=== PATIENT | female | born 1995 | race Caucasian/White ===

== ENCOUNTER → 2021-04-26 13:39 | Outpatient (BNVA) | payer OTHER, SELFPAY | PROVIDERS: Visit Provider Nurse Practitioner Women's Health | DX: Z01.419 Encounter for gynecological examination (general) (routine) without abnormal findings (principal) | CPT/HCPCS: 88175 ==

== ENCOUNTER → 2022-12-10 14:23 | Outpatient (BNVA) | payer OTHER, SELFPAY | PROVIDERS: Visit Provider Nurse Practitioner Women's Health | DX: Z32.00 Encounter for pregnancy test, result unknown (principal) | CPT/HCPCS: 81025 ==

== ENCOUNTER → 2023-01-06 15:45 | Outpatient (BNVA) | payer OTHER, SELFPAY | PROVIDERS: Visit Provider Nurse Practitioner Women's Health | DX: Z36.87 Encounter for antenatal screening for uncertain dates (principal) | CPT/HCPCS: 76801 ==

== ENCOUNTER → 2023-01-16 14:36 | Outpatient (BNVA) | payer OTHER, SELFPAY | PROVIDERS: Visit Provider Obstetrics & Gynecology | DX: Z34.00 Encounter for supervision of normal first pregnancy, unspecified trimester (principal) | CPT/HCPCS: 80307; 84315; 87086 ==

== ENCOUNTER → 2023-01-30 08:46 | Outpatient (BNVA) | payer OTHER, SELFPAY | PROVIDERS: Visit Provider Obstetrics & Gynecology | DX: Z34.00 Encounter for supervision of normal first pregnancy, unspecified trimester (principal) | CPT/HCPCS: 84315; 84443; 85027; 86592; 86762; 86787; 86803; 86850; 86900; 87340; 87491; 87591; 87806 ==

== ENCOUNTER → 2023-04-04 14:23 | Outpatient (BNVA) | payer OTHER, SELFPAY | PROVIDERS: Visit Provider Nurse Practitioner Women's Health | DX: Z34.02 Encounter for supervision of normal first pregnancy, second trimester (principal); Z36.2 Encounter for other antenatal screening follow-up; Z3A.21 21 weeks gestation of pregnancy | CPT/HCPCS: 76805; 84315 ==

== ENCOUNTER → 2023-04-25 14:35 | Outpatient (BNVA) | payer OTHER, SELFPAY | PROVIDERS: Visit Provider Nurse Practitioner Women's Health | DX: Z34.02 Encounter for supervision of normal first pregnancy, second trimester; Z83.2 Family history of diseases of the blood and blood-forming organs and certain disorders involving the immune mechanism; Z36.2 Encounter for other antenatal screening follow-up | CPT/HCPCS: 82950; 84315 ==

== ENCOUNTER → 2023-05-01 15:26 | Outpatient (BNVA) | payer OTHER, SELFPAY | PROVIDERS: Visit Provider Obstetrics & Gynecology | DX: Z34.80 Encounter for supervision of other normal pregnancy, unspecified trimester (principal) | CPT/HCPCS: 76816 ==

== ENCOUNTER → 2023-05-05 08:20 | Outpatient (BNVA) | payer OTHER, SELFPAY | PROVIDERS: Visit Provider Obstetrics & Gynecology | DX: Z34.02 Encounter for supervision of normal first pregnancy, second trimester (principal) | CPT/HCPCS: 82951; 82952 ==

== ENCOUNTER 2023-05-14 14:23 | Outpatient (CLI) | payer OTHER, SELFPAY ==
[2023-05-18 19:18] LABS: Factor 5 Leiden Mutation NEGATIVE
== END 2023-05-14 14:24 | disposition home or self-care (01) ==
LOC: LAB 14:25
PROVIDERS: PCP Obstetrics & Gynecology; Visit Provider Nurse Practitioner Women's Health
DX: Z01.89 Encounter for other specified special examinations (principal); Z83.2 Family history of diseases of the blood and blood-forming organs and certain disorders involving the immune mechanism
CPT/HCPCS: 36415; 81241

== ENCOUNTER → 2023-05-30 08:30 | Outpatient (BNVA) | payer OTHER, SELFPAY | PROVIDERS: PCP Obstetrics & Gynecology; Visit Provider Obstetrics & Gynecology | DX: Z34.02 Encounter for supervision of normal first pregnancy, second trimester (principal) | CPT/HCPCS: 84315; 85025 ==

== ENCOUNTER → 2023-07-08 08:33 | Outpatient (BNVA) | payer OTHER, SELFPAY | PROVIDERS: Visit Provider Nurse Practitioner Women's Health | DX: Z34.02 Encounter for supervision of normal first pregnancy, second trimester (principal) | CPT/HCPCS: 82607; 82728; 82746; 83550; 84315; 85025; 87081 ==

== ENCOUNTER → 2023-07-30 16:02 | Outpatient (BNVA) | payer OTHER, SELFPAY | PROVIDERS: Visit Provider Nurse Practitioner Women's Health | DX: Z34.03 Encounter for supervision of normal first pregnancy, third trimester | CPT/HCPCS: 85025 ==

== ENCOUNTER 2023-08-06 11:45 | Oncology outpatient (recurring) (ONCR) | payer OTHER, SELFPAY ==
[2023-07-18 07:58] VITALS: BP 112/73; PULSE 107; RESP 18; TEMP 36.8; O2SAT 96
[2023-07-18] MEDS: iron sucrose 500 MG in sodium chloride 0.9% 250 ML 68.75 MG IV (08:40)
[2023-07-18 11:48] VITALS: BP 110/72; PULSE 90; RESP 16; TEMP 36.8; O2SAT 99
[2023-07-21 12:15] VITALS: BP 117/75; PULSE 107; RESP 16; TEMP 36.8; O2SAT 97
[2023-07-21] MEDS: iron sucrose 500 MG in sodium chloride 0.9% 250 ML 78 MG IV (12:32)
[2023-07-21 15:12] VITALS: BP 112/73; PULSE 72; RESP 16; O2SAT 95
[2023-08-06 11:43] LABS: Reticulocyte % 3.2 % (0.5-2.0)
[2023-08-06 11:45] LABS: Basophils % 0.4 %; Eosinophils # 0.1 10^3/uL (0.0-0.8); Eosinophils % 1.7 %; Hematocrit 31.9 % (36-47); Lymphocytes # 1.1 10^3/uL (0.8-4.8); Lymphocytes % 20.4 %; Mean Corpuscular Hemoglobin 26.7 pg (27-33); Mean Platelet Volume 10.6 fL (7.4-10.4); Monocytes # 0.4 10^3/uL (0.2-0.9); Monocytes % 7.7 %; Neutrophils # 3.75 10^3/uL (1.8-7.7); Neutrophils % 68.9 %; Nucleated Red Blood Cells % 0 %; Platelet Count 152 10^3/cmm (157-399); Red Blood Count 3.71 10^6/uL (3.85-5.65); Red Cell Distribution Width 21.9 % (12.1-15.1); White Blood Count 5.44 10^3/uL (3.29-11.43)
[2023-08-06 12:03] LABS: Alanine Aminotransferase 10 U/L (0-33); Albumin Level 3.3 g/dL (3.5-5.2); Alkaline Phosphatase 126 U/L (35-105); Anion Gap 14.8 (5-19); Aspartate Amino Transferase 11 U/L (0-32); Blood Urea Nitrogen 6 mg/dL (6-20); Calcium 8.4 mg/dL (8.5-10.5); Carbon Dioxide 21 mmol/L (22-29); Chloride 105 mmol/L (98-107); Creatinine Clr Calc Pharmacy 363.1884; Ferritin 176 ng/mL (15-150); Globulin 2.7 g/dL (1.3-4.6); Glomerular Filtration Rate 268.9 mL/min (90-130); Glucose 104 mg/dL (65-115); Iron 79 ug/dL (37-145); Osmolality Calculated 282 mOsm/kg (285-295); Percent Saturation 18.1 % (20-50); Potassium 3.8 mmol/L (3.5-5.1); Sodium 137 mmol/L (136-145); Total Bilirubin 0.2 mg/dL (0.15-1.2); Total Iron Binding Capacity 436 mcg/dl; Unsaturated Iron Binding 357 ug/dL (112-347)
[2023-08-06 12:19] LABS: Vitamin B12 279 pg/mL (232-1245)
[2023-08-06 12:38] LABS: Folate Level > 20.0 ng/mL (4.8-37.3)
== END 2023-08-15 23:59 | disposition home or self-care (01) ==
PROVIDERS: Internal Medicine Hematology & Oncology; Visit Provider Obstetrics & Gynecology
DX: Z53.9 Procedure and treatment not carried out, unspecified reason (principal); O99.013 Anemia complicating pregnancy, third trimester; D64.9 Anemia, unspecified; Z3A.00 Weeks of gestation of pregnancy not specified
CPT/HCPCS: 36415; 80053; 82607; 82728; 82746; 83540; 83550; 84315; 85025; 85045; 96365; 96366; J1756; J7050

== ENCOUNTER 2023-08-15 08:39 | Outpatient (CLI) | payer OTHER, SELFPAY ==
[2023-08-15 08:39] VITALS: RESP 17; BMI 38.2
[2023-08-15 08:54] VITALS: BP 110/66; PULSE 99
[2023-08-15 09:09] VITALS: BP 114/58
[2023-08-15 09:24] VITALS: BP 110/75; PULSE 105
== END 2023-08-15 09:33 | disposition home or self-care (01) ==
LOC: OPOB 08:39 → OBGYN 08:40
PROVIDERS: Visit Provider Obstetrics & Gynecology
DX: O48.0 Post-term pregnancy (principal); Z3A.00 Weeks of gestation of pregnancy not specified
CPT/HCPCS: 59025

== ENCOUNTER 2023-08-15 14:50 | Inpatient (IN) | payer OTHER, SELFPAY ==
[2023-08-15] VITALS (14 sets, daily range): BP systolic 109–125; BP diastolic 66–78; PULSE 82–94; BMI 38.3
--- NOTE | 2023-08-15 16:32 | PM.OPHPUD ---
Labor & Delivery H&P Update Date of Procedure: August 15, 2023 Date H&P Performed: 08/14/23 H&P update information: I have reviewed H&P completed within last 30 days, I have examined patient prior to procedure and No changes to prior documentation Admission Diagnosis:
[2023-08-15] MEDS: miSOPROStol 100 mcg tablet 25 MCG VAGINAL ×2 (16:35→20:45)
[2023-08-15 17:05] LABS: Basophils % 0.3 %; Eosinophils # 0.1 10^3/uL (0.0-0.8); Eosinophils % 1.6 %; Hematocrit 31.4 % (36-47); Lymphocytes # 1.2 10^3/uL (0.8-4.8); Lymphocytes % 18.9 %; Mean Corpuscular HGB Conc 32.2 g/dL (30-55); Mean Corpuscular Hemoglobin 27.1 pg (27-33); Mean Corpuscular Volume 84.2 fl (85-98); Mean Platelet Volume 11.1 fL (7.4-10.4); Monocytes # 0.5 10^3/uL (0.2-0.9); Monocytes % 8.2 %; Neutrophils # 4.54 10^3/uL (1.8-7.7); Neutrophils % 70.4 %; Nucleated Red Blood Cells % 0 %; Platelet Count 133 10^3/cmm (157-399); Red Blood Count 3.73 10^6/uL (3.85-5.65); Red Cell Distribution Width 21.3 % (12.1-15.1); White Blood Count 6.45 10^3/uL (3.29-11.43)
[2023-08-16] VITALS (105 sets, daily range): BP systolic 93–147; BP diastolic 51–90; PULSE 75–123; RESP 18; TEMP 36.6–37.9; O2SAT 98–99
[2023-08-16] MEDS: acetaminophen 325 mg Tablet 650 MG PO (02:23)
--- NOTE | 2023-08-16 03:40 | P.PN_ITS ---
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: Interval history: feeling moderately strong UCs fetus reassuring UCs every 1-2 minutes received cytotec 25 ug intravaginal x two doses cervix: 2.5 cm Labor: Station: -3 Amniotic Membrane Status: Intact Monitor Mode: Palpation Contraction Pattern: Regular Vitals/I&O/Wt Last Vital Signs Pulse 81 08/16/23 03:31 BP 115/71 08/16/23 03:31 O2 Del Method Room Air 08/15/23 17:06 08/15/23 08/15/23 08/16/23 14:59 22:59 06:59 Intake Total 500 / 500 Balance 500 / 500 Weight last 48 hrs Weight 245 lb Data 08/15/23 16:21 A&P Assessment and plan (1) Encounter for induction of labor: patient at 41 w 2 d admitted for induction of labor Attestations 2 Medical Necessity Statement*: patient at 41 w 2 d, admitted for induction of labor Coding Level of Care Code Acute Code for Chg Fwd Diagnoses Encounter for induction of labor Z34.90 Time Spent (min) 30
[2023-08-16] MEDS: ondansetron 2 mg/ML SDV 2 mL 4 MG IVP ×2 (06:10→16:01)
[2023-08-16] MEDS: fentaNYL 50 mcg/mL INJ 2mL IVP (06:17)
[2023-08-16] MEDS: dextrose 5%-lactated ringers 1,000 ML 125 ML IV ×3 (06:24→20:16)
[2023-08-16] MEDS: lactated ringers 1,000 ML 999 ML IV (08:25)
--- NOTE | 2023-08-16 08:35 | ANES.PREANE2 ---
Pre-Anesthetic Assessment Height/Weight: Height 1.7 m Weight 111.13 kg Temp Pulse Resp BP Pulse Ox O2 Del Method 99.0 F 106 H 18 115/68 98 Room Air 08/16/23 08:03 08/16/23 08:55 08/16/23 06:17 08/16/23 08:55 08/16/23 08:55 08/15/23 17:06 Preop Diagnosis: IUP labor epidural Familial anesthetic complications: none Was Beta Paz taken within 24 hours: N/A Was Clonidine taken within 24 hours: N/A Social No alcohol and No tobacco Exam alert and oriented x 3 Airway Submandibular: within normal limits Cervical ROM: within normal limits Mallampati: Class II Dentition: full History/ROS No significant history except as noted Pulmonary None reported CV/HEM None reported None reported Hepatic None reported GI Gastroesophageal Reflux Disease ( only) and None reported Musc/skel None reported Neuropsych None reported Anesthetic Plan ASA status: 2 Anesthesia: Anesthesia Evaluation and Regional (specify below) Medications/Allergies Home Medications Medication Instructions Recorded Confirmed Last Taken Type vitamin#30 30 mg iron-10 1 cap PO ONCE 07/08/23 08/15/23 08/15/23 08:00 History mg iron-folic acid 1 mg-omg3 capsule ferrous sulfate 325 mg (65 mg 325 mg PO BID 08/15/23 08/15/23 08/15/23 08:00 History iron) tablet (FeroSul) Allergies Allergy/AdvReac Type Severity Reaction Status Date / Time No Known Allergies Allergy Verified 08/14/23 14:38 Current Medications Generic Name Dose Route Start Last Admin Trade Name Freq PRN Reason Stop Dose Admin Acetaminophen 650 mg 08/15/23 16:11 08/16/23 02:23 Acetaminophen 325 Mg Tablet PO 650 mg Q6H PRN Administration Mild pain or temp > 100.4 Fentanyl 25 - 100 mcg 08/15/23 16:11 08/16/23 06:17 Fentanyl 50 Mcg/Ml Inj 2ml IVP 25 mcg Q1H PRN Administration SEVERE PAIN Lactated Ringer's 1,000 mls @ 999 mls/hr 08/15/23 16:11 08/16/23 08:25 Lactated Ringers IV 999 mls/hr .Q1H1M PRN Administration BLEEDING Dextrose/Lactated Ringer's 1,000 mls @ 125 mls/hr 08/15/23 16:15 08/16/23 06:24 Dextrose 5%-Lactated Ringers IV 125 mls/hr .Q8H SUSI Administration Ondansetron HCl 4 mg 08/15/23 16:11 08/16/23 06:10 Ondansetron 2 Mg/Ml Sdv 2 Ml IVP 4 mg Q4H PRN Administration NAUSEA AND VOMITING PFSH Anesthesia Medical History No pertinent past medical history neghx: htn,dm,thyroid,dvt/pe PCP: Prabha Reyes Surgical History [place] teeth extracted Family History Mother Breast cancer dx age 51; uncertain if hormone receptive Grandmother Diabetes Maternal Grandmother Stroke Maternal Clotting disorder Factor V Leiden Mutation----strong probability Family/Other Clotting disorder Factor V Leiden Mutation---maternal Aunt Factor V Leiden Mutation---maternal Uncle Factor V Leiden Mutation--- first and second cousin Denies family history of Colon cancer Ovarian cancer Heart disease Hypercholesteremia Hypertension Uterine cancer Thyroid disease Social History Smoking and tobacco/nicotine status: never used tobacco/nicotine Female Reproductive History : 1 Data Anesthesia 08/15/23 16:21 Short CBC 08/15/23 Range/Units 16:21 WBC 6.45 (3.29-11.43) 10^3/uL Hgb 10.10 L (11.27-16.99) g/dL Hct 31.4 L (36-47) % MCV 84.2 L (85-98) fl Plt Count 133 L (157-399) 10^3/cmm Neut % (Auto) 70.4 % Neut # (Auto) 4.54 (1.8-7.7) 10^3/uL Blood Bank 08/15/23 16:21 Blood Type O Positive Rho(D) Type Rh positive Antibody Screen Negative Cardiac Studies: No Data to Display
--- NOTE | 2023-08-16 08:57 | ANES.PROC ---
Anesthesia Procedures Procedure/Date: 08/16/23 Epidural: Time Out Performed: Yes Consents Signed: Procedure Consent Consent: from patient, risks and benefits reviewed and patient agrees to proceed Lumbar Level: L3-L4 Epidural position: sitting Epidural procedure: sterile prep of area, 1% lidocaine to numb the area, 18 g needle, negative for paresthesia passed, test dose given, 1.5% xylocaine 1:200k epi, placed PCEA, no systemic response, sterile dressing applied, L.U.D. no apparent complications and 0.2% Ropiavacaine @ mls/hr (10) Additional Comments: FERNANDA at 5, negative aspiration. taped at 10 at skin.
[2023-08-16] MEDS: ROPivacaine syringe 100 MG/50 ML SYRINGE 10 MG EPIDURAL ×5 (09:19→22:01)
[2023-08-16] MEDS: oxytocin 30 UNIT/500 ML BAG IV (09:19)
--- NOTE | 2023-08-16 12:10 | P.PN_ITS ---
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: Interval history: Fetus reassuring Comfortable with epidural Cervix: 4 cm / 100 / -2 / posterior AROM, clear fluid IUPC, FSE placed Labor: Station: -1 Amniotic Membrane Status: Ruptured Monitor Mode: Internal (IUPC) Contraction Pattern: Regular Uterine Tone Measurement: 10 Vitals/I&O/Wt Last Vital Signs Temp 99.5 F 08/16/23 18:32 Pulse 96 08/16/23 18:47 Resp 18 08/16/23 18:32 BP 117/68 08/16/23 18:47 Pulse Ox 98 08/16/23 09:20 O2 Del Method Room Air 08/15/23 17:06 08/16/23 08/16/23 08/16/23 06:59 14:59 22:59 Intake Total 819.234 / 819.234 86.867 / 906.101 Output Total 400 / 400 Balance 819.234 / 819.234 -313.133 / 506.101 Weight last 48 hrs Weight 245 lb Physical Exam 2 Urinary Catheter Management: Cristobal: Cath Placed During This Visit: yes Reason for Continuing Indwelling Catheter: Required Immobilization for Trauma or Surgery or Anesthesia Urinary Catheter Date of Insertion: 08/16/23 Urinary Catheter Time of Insertion: 09:15 Data 08/15/23 16:21 A&P Assessment and plan (1) Encounter for induction of labor: Attestations 2 Medical Necessity Statement*: patient at 41 w 2 d, admitted for induction of labor Coding Level of Care Code Acute Code for Chg Fwd Diagnoses Encounter for induction of labor Z34.90 Time Spent (min) 20
[2023-08-16] MEDS: calcium carbonate 500 mg Chew Tablet 1000 MG PO (16:37)
[2023-08-17] VITALS (28 sets, daily range): BP systolic 100–141; BP diastolic 55–83; PULSE 77–117; RESP 17; TEMP 36.7–36.9
--- NOTE | 2023-08-17 00:45 | P.PN_ITS ---
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 Subjective: Interval history: Fetus reassuring Cervix: complete / -2 station Start pushing efforts Labor: Station: +1 Amniotic Membrane Status: Ruptured Monitor Mode: Internal (IUPC) Contraction Pattern: Regular Uterine Tone Measurement: 10 Vitals/I&O/Wt Last Vital Signs Temp 98.6 F 08/16/23 23:33 Pulse 93 08/17/23 07:05 Resp 18 08/16/23 18:32 BP 118/70 08/17/23 07:05 Pulse Ox 98 08/16/23 09:20 O2 Del Method Room Air 08/15/23 17:06 08/16/23 08/17/23 08/17/23 22:59 06:59 14:59 Intake Total 1225.367 / 2044.601 50 / 2094.601 Output Total 400 / 400 Balance 825.367 / 1644.601 50 / 1694.601 Weight last 48 hrs Weight 245 lb Physical Exam 2 Urinary Catheter Management: Cristobal: Cath Placed During This Visit: yes Reason for Continuing Indwelling Catheter: Required Immobilization for Trauma or Surgery or Anesthesia Urinary Catheter Date of Insertion: 08/16/23 Urinary Catheter Time of Insertion: 09:15 Data 08/15/23 16:21 A&P Assessment and plan (1) Encounter for induction of labor: Attestations 2 Medical Necessity Statement*: patient at 41 w 2 d, admitted for induction of labor Coding Level of Care Code Acute Code for Chg Fwd Diagnoses Encounter for induction of labor Z34.90 Time Spent (min) 20
[2023-08-17] MEDS: ROPivacaine syringe 100 MG/50 ML SYRINGE 10 MG EPIDURAL (01:09)
[2023-08-17] MEDS: methylergonovine 0.2 mg/mL INJ 1 mL 0.200000000000000011 MG IM (03:20)
--- NOTE | 2023-08-17 03:45 | P.PN_ITS ---
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 Subjective: Interval history: DELIVERY NOTE Head at +2 station, ROP Patient has been pushing for more than 2 hours Vacuum extractor applied Mild traction used through three UCs, brought head to perineum Shoulders delivered easily Vigorous male infant Cord gases and blood obtained Normal placenta and cord Third-degree perineal laceration repaired in layers EBL: 500 cc No complications Labor: Station: +1 Amniotic Membrane Status: Ruptured Monitor Mode: Internal (IUPC) Contraction Pattern: Regular Uterine Tone Measurement: 10 Vitals/I&O/Wt Last Vital Signs Temp 98.6 F 08/16/23 23:33 Pulse 93 08/17/23 07:05 Resp 18 08/16/23 18:32 BP 118/70 08/17/23 07:05 Pulse Ox 98 08/16/23 09:20 O2 Del Method Room Air 08/15/23 17:06 08/16/23 08/17/23 08/17/23 22:59 06:59 14:59 Intake Total 1225.367 / 2044.601 50 / 2094.601 Output Total 400 / 400 Balance 825.367 / 1644.601 50 / 1694.601 Weight last 48 hrs Weight 245 lb Physical Exam 2 Urinary Catheter Management: Cristobal: Cath Placed During This Visit: yes Reason for Continuing Indwelling Catheter: Required Immobilization for Trauma or Surgery or Anesthesia Urinary Catheter Date of Insertion: 08/16/23 Urinary Catheter Time of Insertion: 09:15 Data 08/15/23 16:21 A&P Assessment and plan (1) Vaginal delivery: s/p vacuum-assisted vaginal delivery repair of third-degree perineal laceration Attestations 2 Medical Necessity Statement*: patient s/p vaginal delivery, for care Coding Level of Care Code Acute Code for Chg Fwd Diagnoses Vaginal delivery O80 Time Spent (min) 90
--- NOTE | 2023-08-17 03:50 | PM.DELIVERY ---
Delivery Note: Date of delivery: August 17, 2023 Pre-delivery diagnoses: 41 w 2 d admitted for induction of labor Post-delivery diagnoses: 41 w 2 d admitted for induction of labor s/p vacuum-assisted vaginal delivery repair of third-degree perineal laceration Procedure: induction of labor vacuum-assisted vaginal delivery repair of third-degree perineal laceration Op report anesthesia: Epidural Delivering Physician: Kleber Ni MD Estimated blood loss (mL): 500 Findings: Head at +2 station, ROP Patient has been pushing for more than 2 hours Vacuum extractor applied Mild traction used through three UCs, brought head to perineum Shoulders delivered easily Vigorous male infant Cord gases and blood obtained Normal placenta and cord Third-degree perineal laceration repaired in layers EBL: 500 cc No complications Pre-Delivery Course: patient received two doses of cytotec 25 ug intravaginal for cervical ripening had artificial rupture of membranes and pitocin augmentation internal monitors were placed patient progressed to complete dilatation Delivery: see above Post-Delivery Status: good History History History 1 Term 0 Miscarriages/Ectopic Living Children A&P Assessment and plan (1) Vaginal delivery: for care Coding Level of Care Code Acute Code for Chg Fwd Diagnoses Vaginal delivery O80 Time Spent (min) 90
[2023-08-17] MEDS: HYDROcodone-acetaminophen 5-325 mg Tablet PO (06:43)
[2023-08-17] MEDS: PRENATAL VIT NO.130/IRON/FOLIC 1 EACH TABLET PO (08:39)
[2023-08-17] MEDS: ibuprofen 800 mg tablet PO ×3 (08:39→22:09)
[2023-08-17] MEDS: docusate sodium 100 mg Capsule PO (08:39)
[2023-08-17 16:20] LABS: Hematocrit 28.6 % (36-47); Mean Corpuscular HGB Conc 31.8 g/dL (30-55); Mean Corpuscular Hemoglobin 27.3 pg (27-33); Mean Corpuscular Volume 85.9 fl (85-98); Mean Platelet Volume 10.6 fL (7.4-10.4); Platelet Count 149 10^3/cmm (157-399); Red Blood Count 3.33 10^6/uL (3.85-5.65); Red Cell Distribution Width 21.5 % (12.1-15.1); White Blood Count 11.57 10^3/uL (3.29-11.43)
[2023-08-18 05:34] VITALS: BP 101/67; PULSE 88; RESP 17; TEMP 36.6
[2023-08-18] MEDS: HYDROcodone-acetaminophen 5-325 mg Tablet PO (06:23)
--- NOTE | 2023-08-18 08:00 | ANE.PACU2 ---
Inpatient post-anesthesia follow up: Airway intact: Yes Vital signs: Temperature 98.2 F Pulse Rate 86 Respiratory Rate 16 Blood Pressure 99/63 Pulse Oximetry 98 Oxygen Delivery Me thod Room Air Oxygen Flow Rate Fraction of Inspir ed Oxygen Hydration adequate: Yes Nausea and vomiting: No Pain level: 1 Mental status: Baseline Epidural Start/End: Epidural Start Date: 08/16/23 Epidural Start Time: 08:34 Epidural End Date: 08/17/23 Epidural End Time: 04:30
[2023-08-18] MEDS: ibuprofen 800 mg tablet PO (08:11)
[2023-08-18] MEDS: docusate sodium 100 mg Capsule PO (08:11)
[2023-08-18] MEDS: PRENATAL VIT NO.130/IRON/FOLIC 1 EACH TABLET PO (08:11)
[2023-08-18 12:23] VITALS: BP 99/63; PULSE 86; RESP 16; TEMP 36.8
--- NOTE | 2023-08-18 14:10 | PM.OBGYDC ---
Discharge Providers [facility] [employer] Date of Admission: 08/16/23 12:15 Date of Discharge: 08/18/23 Attending Provider at Admission: Luke Hernandez MD Attending Provider at Discharge: Kleber Ni MD Consults: none Primary [employer]: Luke Hernandez MD Diagnoses at Discharge Discharge Diagnosis (1) Vaginal delivery: Details from hospital stay: 28 y.o. G1 was admitted at 41 w 1 d for induction of labor patient progressed to complete and +2 station with normal labor course patient pushed for more than 2 hours had vacuum-assisted vaginal delivery due to maternal exhaustion vaginal delivery of vigorous male without any complications patient had repair of third-degree perineal laceration no complications patient was discharged to home on the first day Status: Acute Reason for Visit Reason for Visit: IOL Post dates Brief History: 28 y.o. G1 was admitted at 41 w 1 d for induction of labor Hospital Course Hospital Course 28 y.o. G1 was admitted at 41 w 1 d for induction of labor patient progressed to complete and +2 station with normal labor course patient pushed for more than 2 hours had vacuum-assisted vaginal delivery due to maternal exhaustion vaginal delivery of vigorous male without any complications patient had repair of third-degree perineal laceration no complications patient was discharged to home on the first day Information Peripartum Data: Delivery Method: Operative Vaginal Laceration description: Perineal - 3rd Degree Episiotomy description: None complications: none Physical Exam Narrative: afebrile, VS normal comfortable, awake, alert Abd: soft, nontender. fundus firm Ext: no edema; nontender Urinary Catheter Management: Cristobal: Cath Placed During This Visit: yes, but has since been removed by the nurse Reason for Continuing Indwelling Catheter: Required Immobilization for Trauma or Surgery or Anesthesia Urinary Catheter Date of Insertion: 08/16/23 Urinary Catheter Time of Insertion: 09:15 Date Urinary Catheter Removed: 08/17/23 Time Urinary Catheter Discontinued: 00:35 History History History 1 Term 0 Miscarriages/Ectopic Living Children Discharge Data Studies Completed and Pending Laboratory Results WBC 11.57 10^3/uL (3.29-11.43) H 08/17/23 16:13 RBC 3.33 10^6/uL (3.85-5.65) L 08/17/23 16:13 Hgb 9.10 g/dL (11.27-16.99) L 08/17/23 16:13 Hct 28.6 % (36-47) L 08/17/23 16:13 MCV 85.9 fl (85-98) 08/17/23 16:13 MCH 27.3 pg (27-33) 08/17/23 16:13 MCHC 31.8 g/dL (30-55) 08/17/23 16:13 RDW 21.5 % (12.1-15.1) H 08/17/23 16:13 Plt Count 149 10^3/cmm (157-399) L 08/17/23 16:13 MPV 10.6 fL (7.4-10.4) H 08/17/23 16:13 Neut % (Auto) 70.4 % 08/15/23 16:21 Lymph % (Auto) 18.9 % 08/15/23 16:21 [place] % (Auto) 8.2 % 08/15/23 16:21 Eos % (Auto) 1.6 % 08/15/23 16:21 Baso % (Auto) 0.3 % 08/15/23 16:21 Neut # (Auto) 4.54 10^3/uL (1.8-7.7) 08/15/23 16:21 Lymph # (Auto) 1.2 10^3/uL (0.8-4.8) 08/15/23 16:21 [place] # (Auto) 0.5 10^3/uL (0.2-0.9) 08/15/23 16:21 Eos # (Auto) 0.1 10^3/uL (0.0-0.8) 08/15/23 16:21 Baso # (Auto) 0.0 10^3/uL (0.0-0.1) 08/15/23 16:21 Nucleated RBC % (auto) 0 % 08/15/23 16:21 Nucleated RBCs # 0.0 /100WBC 08/15/23 16:21 Blood Type O Positive 08/15/23 16:21 Rho(D) Type Rh positive 08/15/23 16:21 Antibody Screen Negative 08/15/23 16:21 Procedures Performed labor induction vacuum-assisted vaginal delivery repair of third-degree perineal laceration Vitals Last Vital Signs Temp 98.2 F 08/18/23 12:23 Pulse 86 08/18/23 12:23 Resp 16 08/18/23 12:23 BP 99/63 08/18/23 12:23 Pulse Ox 98 08/16/23 09:20 O2 Del Method Room Air 08/18/23 12:23 Results Labs OB ([facility]): Obstetrics US 05/01/23 Blood Type O Positive 08/15/23 Antibody Screen Negative 08/15/23 Hct 28.6 % (36-47) L 08/17/23 Hgb 9.10 g/dL (11.27-16.99) L 08/17/23 Rho(D) Type Rh positive 08/15/23 Plt Count 149 10^3/cmm (157-399) L 08/17/23 Hep Bs Antigen Non-reactive (Nonreactive) 01/30/23 Hepatitis C Antibody Non-reactive (Nonreactive) 01/30/23 Rubella IgG Antibody 59.4 IU/mL (0.0-10.0) H 01/30/23 RPR Nonreactive (Nonreactive) 01/30/23 HIV 1&2 Ab & HIV 1 Ag Non-reactive (Non-Reactiv) 01/30/23 TSH 1.22 uIU/mL (0.27-4.20) 01/30/23 C.trachomatis RNA (TMA) Not detected (NOT DETECTED) 01/30/23 N.gonorrhoeae RNA (TMA) Not detected (NOT DETECTED) 01/30/23 T. vaginalis Amp RNA Not detected (NOT DETECTED) 01/30/23 Chlamydia/GC Comment See note 01/30/23 Gest Glucose Tolerance mg/dL 05/05/23 VZV IgG Antibody 288.60 index 01/30/23 HCG, Qual Positive (Negative) H 12/10/22 Urine Opiates Screen Negative ng/mL (Negative) 01/16/23 Ur Barbiturates Screen Negative ng/mL (Negative) 01/16/23 Ur Phencyclidine Scrn Negative ng/mL (Negative) 01/16/23 Ur Amphetamines Screen Negative ng/mL (Negative) 01/16/23 U Benzodiazepines Scrn Negative ng/mL (Negative) 01/16/23 Urine Cocaine Screen Negative ng/mL (Negative) 01/16/23 U Marijuana (THC) Screen Negative ng/mL (Negative) 01/16/23 Micro Urine Specimen 01/16/23 Pap Smear Interpret See note 04/26/21 Discharge Plan Discharge Patient Disposition: Home Condition: Stable Prescriptions: New Percocet 10-325 mg tablet 1 tab PO BID PRN (Reason: pain) Qty: 14 0RF Continued PNV #[id number] 30 mg iron-10 mg iron-1 mg capsule 1 cap PO ONCE FeroSul 325 mg (65 mg iron) tablet 325 mg PO BID Discharge Orders: Discharge Order (Routine); Ordered 08/18/23 Ordered By: Kleber Ni Referrals: Luke Hernandez MD [Physician] - 09/29/23 2:45 pm Discharge Diet: Usual diet Discharge Activity: Increase activity as tolerated Patient Instructions: Depression (GEN), Bleeding (GEN), OB Food/Drug Interaction Guide, OB Care at Home, Opioid Safety, OB Home Care, OB Vaginal Deliveries - [facility], Abnormal Bleeding Discharge Attestations [employer] Time Spent in Discharge Care*: less than 30 min Coding Level of Care Code Acute Code for Chg Fwd Diagnoses Vaginal delivery O80 Time Spent (min) 20
--- NOTE | 2023-08-19 21:24 | PM.OBGYPN ---
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 fundus firm Ext: no edema; nontender Urinary Catheter Management: Cristobal: Cath Placed During This Visit: yes, but has since been removed by the nurse Reason for Continuing Indwelling Catheter: Required Immobilization for Trauma or Surgery or Anesthesia Urinary Catheter Date of Insertion: 08/16/23 Urinary Catheter Time of Insertion: 09:15 Date Urinary Catheter Removed: 08/17/23 Time Urinary Catheter Discontinued: 00:35 Data 08/17/23 16:13 A&P Assessment and plan (1) Vaginal delivery: PPD #1 vacuum-assisted vaginal delivery with repair of third-degree perineal laceration doing well discharge to home today instructions and precautions given call/return if fever, chills, headache, blurry vision, nausea, vomiting, abdominal pain; vaginal bleeding or discharge; shortness of breath, chest pain, leg pains or swelling; inability to void, perineal pain or swelling; feelings of depression or mood changes; thoughts of suicide or harming others; inability to care for baby. f/u in 6 weeks or PRN Attestations Medical Necessity Statement*: patient s/p vaginal delivery, plan to discharge to home today Coding Level of Care Code Acute Code for Chg Fwd Diagnoses Vaginal delivery O80 Time Spent (min) 20
== END 2023-08-18 13:06 | disposition home or self-care (01) | DRG 768 ==
LOC: OBGYN 15:08 → OPOB 17:51 → OBGYN 17:53
PROVIDERS: Obstetrics & Gynecology; Admitting Provider Obstetrics & Gynecology; Visit Provider Obstetrics & Gynecology
DX: O99.02 Anemia complicating childbirth (principal); Z37.0 Single live birth; O70.20 Third degree perineal laceration during delivery, unspecified; O48.0 Post-term pregnancy; Z3A.41 41 weeks gestation of pregnancy
CPT/HCPCS: 36415; 51702; 59025; 85025; 85027; 86850; 86900; 96372; 96374; 96376; G0378; J2210; J2405; J2590; J2795; J3010; J7120; J7121

== ENCOUNTER 2023-09-10 11:17 | Oncology outpatient (recurring) (ONCR) | payer OTHER, SELFPAY ==
[2023-09-10 12:00] LABS: Basophils % 0.6 %; Eosinophils # 0.2 10^3/uL (0.0-0.8); Eosinophils % 3.7 %; Hematocrit 37.6 % (36-47); Lymphocytes # 1.5 10^3/uL (0.8-4.8); Mean Corpuscular HGB Conc 30.9 g/dL (30-55); Mean Corpuscular Hemoglobin 26.5 pg (27-33); Mean Corpuscular Volume 85.8 fl (85-98); Mean Platelet Volume 9.7 fL (7.4-10.4); Monocytes # 0.3 10^3/uL (0.2-0.9); Monocytes % 5.3 %; Neutrophils # 2.91 10^3/uL (1.8-7.7); Neutrophils % 59.2 %; Nucleated Red Blood Cells % 0 %; Platelet Count 226 10^3/cmm (157-399); Red Blood Count 4.38 10^6/uL (3.85-5.65); Red Cell Distribution Width 18.4 % (12.1-15.1); White Blood Count 4.91 10^3/uL (3.29-11.43)
[2023-09-10 12:16] LABS: Alanine Aminotransferase 15 U/L (0-33); Albumin Level 4.2 g/dL (3.5-5.2); Alkaline Phosphatase 98 U/L (35-105); Anion Gap 17.4 (5-19); Aspartate Amino Transferase 10 U/L (0-32); Blood Urea Nitrogen 11 mg/dL (6-20); Calcium 9.1 mg/dL (8.5-10.5); Carbon Dioxide 24 mmol/L (22-29); Chloride 100 mmol/L (98-107); Globulin 2.3 g/dL (1.3-4.6); Glomerular Filtration Rate 149.1 mL/min (90-130); Glucose 115 mg/dL (65-115); Osmolality Calculated 284 mOsm/kg (285-295); Potassium 4.4 mmol/L (3.5-5.1); Sodium 137 mmol/L (136-145); Total Bilirubin 0.2 mg/dL (0.15-1.2); Total Protein 6.5 g/dL (6.6-8.7)
[2023-09-10 12:34] LABS: Ferritin 74 ng/mL (15-150); Iron 39 ug/dL (37-145); Percent Saturation 11.4 % (20-50); Total Iron Binding Capacity 340 mcg/dl; Unsaturated Iron Binding 301 ug/dL (112-347)
== END 2023-09-14 23:59 | disposition home or self-care (01) ==
PROVIDERS: Nurse Practitioner Family; Visit Provider Obstetrics & Gynecology
DX: O99.013 Anemia complicating pregnancy, third trimester; D64.9 Anemia, unspecified; Z3A.00 Weeks of gestation of pregnancy not specified; Z83.2 Family history of diseases of the blood and blood-forming organs and certain disorders involving the immune mechanism
CPT/HCPCS: 36415; 80053; 82728; 83540; 83550; 85025